=== PATIENT | female | born 1990 | race Hispanic/Latino ===

== ENCOUNTER → 2020-06-01 | Outpatient (CLI) | payer BC ==
[2020-06-01 12:18] LABS: INR 0.96 (0.85-1.15); PROTHROMBIN TIME 10.5 SEC (9.6-11.6)
[2020-06-01 12:19] LABS: PARTIAL THROMBOPLASTIN TIME 28.3 SEC (26.3-35.5)
== END ==
LOC: RAH 09:27
PROVIDERS: ATTEND Family Medicine
DX: R59.0 Localized enlarged lymph nodes (principal); Z79.01 Long term (current) use of anticoagulants
CPT/HCPCS: 36415; 38505; 76942; 85610; 85730